=== PATIENT | male | born 1965 | race Caucasian/White ===

== ENCOUNTER 2019-06-26 21:20 | Inpatient (IN) ==
[2019-06-26] MEDS ORDERED: Sodium Chloride 0.9% 1,000 ML PRIMARY IV ONE (21:36)
[2019-06-26] MEDS ORDERED: ASPIRIN 81 MG (BABY) CHEWABLE TABLET PO ONE (21:36)
[2019-06-26 22:03] LABS: BASOPHILS # (AUTO) 0.02 10*3/UL; BASOPHILS % (AUTO) 0.2 % (0-1); EOSINOPHILS # (AUTO) 0.14 10*3/UL; EOSINOPHILS % (AUTO) 1.6 % (0-8); Hematocrit [HCT] 37.6 % (42.0-52.0); Hemoglobin [HGB] 13.3 g/dL (14.0-18.0); LYMPHOCYTES # (AUTO) 3.62 10*3/uL; MEAN CORPUSCULAR HGB CONC 35.4 g/dL (33-37); MEAN CORPUSCULAR VOLUME 84.1 FL (80-90); MEAN PLATELET VOLUME 9.4 FL (7.4-12.2); MONOCYTES # (AUTO) 1.04 10*3/UL (0.3-0.8); MONOCYTES % (AUTO) 11.7 % (5-15); NEUTROPHILS # (AUTO) 4.05 10*3/UL; NEUTROPHILS % (AUTO) 45.6 % (50-80); RED BLOOD COUNT 4.47 10^6/uL (4.70-6.10)
[2019-06-26 22:04] LABS: PLATELET MORPHOLOGY COMMENT NORMAL MORPHOLOGY (NORM); RBC MORPHOLOGY COMMENT NORMAL MORPHOLOGY (NORM); WBC MORPHOLOGY COMMENT NORMAL MORPHOLOGY (NORM)
[2019-06-26 22:15] LABS: BLOOD UREA NITROGEN 13 mg/dL (7-22)
[2019-06-27] MEDS ORDERED: LIDOCAINE W/ SODIUM BICARB 0.5 ML SYR SUBD PRN (00:30)
[2019-06-27] MEDS ORDERED: NITROGLYCERIN 0.4 MG SL TAB (BOTTLE OF 3) SL PRN (00:30)
[2019-06-27] MEDS ORDERED: CALCIUM CARBONATE 500 MG (TUMS) CHEWABLE TABLET PO PRN (00:30)
[2019-06-27] MEDS: OMEPRAZOLE 20 MG CAPSULE PO SCH (06:59)
[2019-06-27] MEDS: ASPIRIN EC 81 MG TABLET PO SCH (08:47)
[2019-06-27] MEDS: LISINOPRIL 20 MG TABLET PO SCH (08:48)
[2019-06-27 09:53] LABS: BLOOD UREA NITROGEN 10 mg/dL (7-22); BUN/CREATININE RATIO 9.09 (6-20); SERUM ALBUMIN 3.8 g/dL (3.5-4.8)
[2019-06-27] MEDS ORDERED: Magnesium Sulfate 2gm (Premix) 2 GM/50 ML BAG IV ONE ×3 (10:51→20:48)
[2019-06-27] MEDS: POTASSIUM CHLORIDE 20 MEQ TAB PO SCH (21:17)
[2019-06-28 05:22] LABS: BLOOD UREA NITROGEN 9 mg/dL (7-22); BUN/CREATININE RATIO 8.18 (6-20); CHOL/HDL RATIO 4.29 RATIO (0-4.0); SERUM ALBUMIN 3.7 g/dL (3.5-4.8)
[2019-06-28] MEDS: OMEPRAZOLE 20 MG CAPSULE PO SCH (07:35)
[2019-06-28] MEDS: ASPIRIN EC 81 MG TABLET PO SCH (09:32)
[2019-06-28] MEDS: POTASSIUM CHLORIDE 20 MEQ TAB PO SCH (09:32)
[2019-06-28] MEDS: LISINOPRIL 20 MG TABLET PO SCH (09:32)
[2019-06-28 17:39] VITALS: BP 156/90; RESP 20; TEMP 98.1; O2SAT 92
== END 2019-06-28 18:25 | disposition home or self-care (01) | DRG 313 ==
LOC: MED/SURG 21:20 → ER 21:20 → MED/SURG 06-27 00:28
PROVIDERS: ADMIT Internal Medicine; ATTEND Internal Medicine